=== PATIENT | female | born 1990 | race Caucasian/White ===

== ENCOUNTER 2021-10-28 15:28 | Outpatient (REF) | payer OTHER, SELFPAY ==
[2021-10-28 16:20] LABS: COVID-19 Test Negative (Negative); IDNOW Serial# 9DB6401D
== END 2021-10-28 15:29 | disposition home or self-care (01) ==
LOC: HO.LAB 15:28
PROVIDERS: Absent Provider Internal Medicine; PCP Internal Medicine; Visit Provider Internal Medicine
DX: Z20.822 Contact with and (suspected) exposure to COVID-19 (principal)
CPT/HCPCS: 87635